=== PATIENT | male | born 1950 | race Caucasian/White ===

== ENCOUNTER 2022-10-07 11:18 | Emergency (ER) | payer MEDICARE, SELFPAY ==
[2022-10-07 11:19] VITALS: RESP 19; TEMP 37; O2SAT 97; BMI 31.3
--- NOTE | 2022-10-07 11:30 | XR_ITS ---
FINAL REPORT CLINICAL HISTORY: COW BITE FINDINGS: RIGHT HAND Three views demonstrate no acute fracture. There is no dislocation. The visualized joint spaces are normally aligned. There are mild degenerative changes. There is dorsal hand soft tissue swelling. IMPRESSION: Soft tissue swelling with no acute bony abnormality. Reviewed, Interpreted and Dictated by Johnathon Reyes III, MD Transcribed by Vickie Curran Authenticated and [facility]
--- NOTE | 2022-10-07 11:47 | EXP.UTC ---
Discharge Plan Disposition Patient Disposition: Home, Self-Care Condition: Good Prescriptions Prescriptions: New amoxicillin-pot clavulanate [Augmentin] 500-125 mg tablet 1 tab PO BID 7 Days Qty: 14 0RF Referrals Follow up/Referrals: Silvana Junior APRN [Primary Care Provider] - See instructions Activity Restrictions/Add. Instructions Additional Instructions/Restrictions: Elevate hand when you are sitting to help reduce swelling Ice to area 20 Minutes every couple of hours Follow up with your Family Doctor Watch area for signs of infection including but not limited to woresning of swelling, redness or drainage if seen Follow up immediately Return if needed Clinical Impressions Clinical Impression: Hand injury Qualifiers: Encounter type: initial encounter Laterality: right Qualified Code(s): S69.91XA - Unspecified injury of right wrist, hand and finger(s), initial encounter Instructions Patient Instructions: How To Perform RICE (Rest, Ice, Compress, Elevate), Amoxicillin and Clavulanic Acid Discharge ED Provider: Veronica Ramos [facility] [place] HPI General Stated complaint: [email or web address]@[id number] lac on Rt hand Time Seen by Provider: 10/07/22 11:47 History of Present Illness Provider Complaint: Patient states that he was working with a cow when she turned and his right hand got caught between cow and head gate States that it scratched the skin off the top of his hand but he was worried it may have broken something and he has a large hematoma on top of his hand able to move his fingers easily Related Data Previous Rx's Medication Instructions Recorded amoxicillin 500 mg-potassium 1 tab PO BID 7 days #14 tabs 10/07/22 clavulanate 125 mg tablet (Augmentin) Allergies Allergy/AdvReac Type Severity Reaction Status Date / Time No Known Allergies Allergy Verified 10/07/22 11:52 [facility] Disclaimer: The information contained in this section may have been updated after the patient was seen, as this information can be updated by other users. Social History Smoking Status: Never smoker alcohol intake: never current occupational status: retired Travel in the last 8 weeks: None ROS Obtained: Yes All systems reviewed & no additional complaints except as documented and Yes Systems reviewed as appropriate & no additional complaints except as documented Constitutional Constitutional: Reports system reviewed and no additional complaints, except as documented and Reports as per HPI ENT Ears, Nose, Mouth, and Throat: Reports system reviewed and no additional complaints, except as documented and Reports as per HPI Cardiovascular Cardiovascular: Reports system reviewed and no additional complaints, except as documented and Reports as per HPI Respiratory Respiratory: Reports system reviewed and no additional complaints, except as documented and Reports as per HPI Gastrointestinal Gastrointestingal: Reports system reviewed and no additional complaints, except as documented and as per HPI Musculoskeletal Musculoskeletal: Reports system reviewed and no additional complaints, except as documented and Reports as per HPI Comments: swelling, bruising and abrasion to top of his right hand Physical Exam General General appearance: alert and in no apparent distress Respiratory Respiratory exam: Present normal lung sounds bilaterally; Absent respiratory distress or wheezes Cardiovascular Cardiovascular exam: Present regular rate, normal rhythm and normal heart sounds Expanded Upper Extremity Exam Right: Hand exam: Present tenderness, swelling, abrasion and ecchymosis Hand L/R back image: 1. large abrasion noted with swelling patient reports on blood thinners, able to move fingers easily Vascular exam: Normal capillary refill and radial pulse Neurological Exam Neurological exam: Present alert, oriented X3 and normal gait Medical Decision Making Jonathan Inquiry Pt receiving controlled substance: No K
[2022-10-07 11:48] VITALS: BP 137/72; PULSE 70; RESP 19; TEMP 37; O2SAT 97; BMI 31.3
[2022-10-07 12:56] VITALS: BP 137/72; PULSE 70; RESP 19; TEMP 37; O2SAT 97
== END 2022-10-07 14:34 | disposition home or self-care (01) ==
PROVIDERS: Emergency Provider Nurse Practitioner; PCP Nurse Practitioner Family
DX: S60.221A Contusion of right hand, initial encounter (principal); W23.2XXA Caught, crushed, jammed or pinched between a moving and stationary object, initial encounter; Z23 Encounter for immunization
CPT/HCPCS: 73130; 90715; 99204; 99212; G0463